=== PATIENT | male | born 1975 ===

== ENCOUNTER 2018-05-11 12:41 | Outpatient (REF) | payer MEDICAID, SELFPAY ==
[2018-05-11 20:48] LABS: HCT 46.2 % (40.0-50.0); HGB 16.1 g/dL (13.5-17.5); Mean Corp. HGB Concentration 34.8 g/dL (32.0-36.0); Mean Corpuscular Hemoglobin 31.3 pg (27.0-33.0); Mean Corpuscular Volume 89.7 fL (80-95); Mean Platelet Volume 10.6 fL (8.0-11.0); Platelet Count 231 x1000/uL (130-400); RBC 5.15 m/cumm (4.50-6.00)
[2018-05-11 21:08] LABS: ALT 93 U/L (12-78); AST 49 U/L (15-37); Albumin 3.9 g/dL (3.4-5.0); Alkaline Phosphatase 81 U/L (46-116); Anion Gap 11.1 mmol/L (3-11); BUN 18 mg/dL (7-18); Bilirubin, Total 0.8 mg/dL (0.2-1.0); CO2 23.9 mmol/L (21.0-32.0); CREATININE 1.04 mg/dL (0.70-1.30); Calcium 8.5 mg/dL (8.5-10.1); Chloride 102 mmol/L (98-107); Cholesterol 221 mg/dL (50-200); Glucose 77 mg/dL (70-100); HDL Cholesterol 35 mg/dL (40-60); LDL CHOLESTEROL 142 mg/dL (<100); Potassium 4.3 mmol/L (3.5-5.1); Sodium 137 mmol/L (136-145); TSH 3.64 uIU/mL (0.358-3.74); Triglyceride 321 mg/dL (30-150)
[2018-05-14 22:36] LABS: Testosterone, Total 544 ng/dL (240-950)
== END 2018-05-11 12:42 ==
LOC: NCHCN 12:41
PROVIDERS: PCP Family Medicine; Visit Provider Registered Nurse
DX: R39.9 Unspecified symptoms and signs involving the genitourinary system (principal); N52.9 Male erectile dysfunction, unspecified; E66.9 Obesity, unspecified
CPT/HCPCS: 80053; 80061; 83721; 84403; 85027; 84443

== ENCOUNTER 2018-05-18 08:56 | Outpatient (REF) | payer MEDICAID, SELFPAY ==
[2018-05-18 21:33] LABS: Iron 89 ug/dL (50-175); Total Iron Binding Capacity 269 ug/dL (250-450); Transferrin Sat 33 % (20-55)
[2018-05-20 10:45] LABS: HBs Antibody, Quant <3.1 mIU/mL; Hepatitis B Surface Ab Negative; Hepatitis B Surface Ag Negative (NEGAT); Hepatitis C Ab w Rflx HCV PCR Negative (NEGAT)
== END 2018-05-18 08:57 ==
LOC: NCHCN 08:56
PROVIDERS: PCP Family Medicine; Visit Provider Family Medicine
DX: R74.8 Abnormal levels of other serum enzymes (principal); K62.5 Hemorrhage of anus and rectum; Z11.59 Encounter for screening for other viral diseases
CPT/HCPCS: 86706; 86803; 87340; 83540; 83550

== ENCOUNTER 2019-11-30 10:03 | Outpatient (REF) | payer MEDICAID, SELFPAY ==
[2019-11-30 23:30] LABS: ALT 135 U/L (16-63); AST 63 U/L (15-37); Albumin 4.1 g/dL (3.4-5.0); Alkaline Phosphatase 101 U/L (46-116); Anion Gap 8.8 mmol/L (3-11); BUN 16 mg/dL (7-18); Bilirubin, Total 0.8 mg/dL (0.2-1.0); CO2 28.2 mmol/L (21.0-32.0); Calcium 9.4 mg/dL (8.5-10.1); Chloride 101 mmol/L (98-107); Glucose 87 mg/dL (74-106); Potassium 4.3 mmol/L (3.5-5.1); Sodium 138 mmol/L (136-145); Total Protein 7.2 g/dL (6.4-8.2)
[2019-12-01 13:59] LABS: Calculated LDL 152 mg/dL (<100); Cholesterol 260 mg/dL (<200); HDL Cholesterol 38 mg/dL (40-60); Triglyceride 354 mg/dL (<150)
== END 2019-11-30 10:23 ==
LOC: NCHCN 10:03
PROVIDERS: PCP Family Medicine; Visit Provider Registered Nurse
DX: B35.1 Tinea unguium (principal); E66.9 Obesity, unspecified
CPT/HCPCS: 80053; 80061

== ENCOUNTER 2020-01-31 10:52 | Outpatient (REF) | payer MEDICAID, SELFPAY ==
[2020-01-31 21:40] LABS: ALT 69 U/L (16-63); AST 43 U/L (15-37)
== END 2020-01-31 11:12 ==
LOC: LBN 10:52
PROVIDERS: PCP Family Medicine; Visit Provider Registered Nurse
DX: R74.8 Abnormal levels of other serum enzymes (principal)
CPT/HCPCS: 84450; 84460